=== PATIENT | male | born 1945 | race Hispanic/Latino ===

== ENCOUNTER → 2024-08-16 | Outpatient (CLI) | payer OTHER ==
[~2024-08-16] MED LIST: IOHEXOL 350 MG/ML 100ML INFUS..BTL IV ONE
--- NOTE | 2024-08-16 10:27 | HMCIMG ---
CT ABDOMEN/PELVIS W/WO CONTRAS REASON: RETENTION OF URINE COMPARISON: None. TECHNIQUE: Images are obtained from lung bases to the symphysis pubis following IV contrast, 100 cc Omnipaque 350. FINDINGS: There is a moderate pericardial effusion measuring 1.1 cm along the left lateral cardiac margin. Lung bases are clear. There are no focal liver lesions. There are normal-appearing kidneys.. Spleen and pancreas appear unremarkable. The gallbladder appears normal as well. There is marked sigmoid diverticulosis without evidence of diverticulitis. Bowel loops appear otherwise unremarkable. This includes normal appearance of the appendix There is no evidence of free fluid or intraperitoneal air. There are no focal fluid collections. Aorta and retroperitoneum appear normal. There is a Verma catheter present in the urinary bladder. Urinary bladder appears diffusely thick-walled although the bladder is nondistended. The anterior abdominal wall is intact. Osseous structures appear unremarkable. IMPRESSION: 1. Moderate pericardial effusion. The 2. Verma catheter in the urinary bladder, the bladder appears somewhat thick-walled although it is nondistended. 3. Marked sigmoid diverticulosis without evidence of diverticulitis. CT was performed with one or more following dose reduction techniques: automated exposure control, adjustment of the mA and kv according to patient's size, or use of a iterative reconstruction technique.
== END | disposition home or self-care (01) ==
LOC: RAH 07:20
PROVIDERS: ATTEND Urology
DX: K57.30 Diverticulosis of large intestine without perforation or abscess without bleeding (principal); R33.9 Retention of urine, unspecified; I31.39 Other pericardial effusion (noninflammatory)
CPT/HCPCS: 74178; Q9967